=== PATIENT | male | born 1970 | race Hispanic/Latino ===

== ENCOUNTER 2017-01-30 21:12 | Emergency (ER) | payer MEDICAID ==
[~2017-01-30 21:12] MED LIST: ALBU8.5H8 IH; CETI10TA57 PO; CLON1TAB4 PO; CYAN250014 PO; DOCU240C88 PO; ESOM40CA PO; FENO134C PO; FERS325 PO; LEVO75TA10 PO; MONT10TA24 PO; OLAN1CAP17 PO; OXCA600T37 PO; PRED20TA3 PO; PYRI50TA9 PO; QUET400T12 PO; TEMA30CA PO; VIT1TABL75 PO
[2017-01-30 21:43] LABS: APPEARANCE,URINE Clear (CLEAR); BILIRUBIN,URINE Negative (NEGATIVE); COLOR,URINE Yellow (YELLOW); GLUCOSE, URINE (UA) >=1000 mg/dL (NEGATIVE); KETONES,URINE Negative (NEGATIVE); LEUKOCYTE ESTERASE ,URINE Negative (NEGATIVE); NITRATE,URINE Negative (NEGATIVE); OCCULT BLOOD,URINE Negative (NEGATIVE); PROTEIN,URINE Negative (NEGATIVE); UROBILINOGEN,URINE 0.2 mg/dL (0.2-1.0)
[2017-01-30 21:44] LABS: BASOPHILS % (AUTO) 1.1 % (0.0-5.0); EOSINOPHILS % (AUTO) 3.6 % (0.0-8.0); HEMATOCRIT 39.5 % (42-54); LYMPHOCYTES % (AUTO) 31.4 % (21.0-51.0); MEAN CORPUSCULAR HEMOGLOBIN 31.7 pg (27.0-33.0); MEAN CORPUSCULAR HGB CONC 33.7 g/dL (32.0-36.0); MEAN CORPUSCULAR VOLUME 93.9 fL (79-99); NEUTROPHILS % (AUTO) 54.9 % (40.0-77.0); NUCLEATED RED BLOOD CELLS 0.1 % (0.0-0.19); PLATELET COUNT (AUTO) 277 K/uL (130-400); RED CELL DISTRIBUTION WIDTH 15.7 % (11.0-15.5); WHITE BLOOD COUNT (AUTO) 10.2 K/uL (4.8-10.8)
[2017-01-30 21:47] LABS: CREATININE 1.4 mg/dL (0.5-1.5); POTASSIUM 3.4 mmol/L (3.5-5.1)
[2017-01-30 22:00] LABS: ALBUMIN 3.4 g/dL (3.5-5.0); BILIRUBIN,TOTAL 0.2 mg/dL (0.2-1.0); TOTAL PROTEIN, SERUM 7.1 g/dL (6.0-8.3)
[2017-01-30 22:07] LABS: BACTERIA,URINE Rare /HPF (None Seen); RBC,URINE 0-1 /HPF (0-1); WBC,URINE 0-1 /HPF (0-1)
[2017-01-30 22:08] LABS: SQUAMOUS EPITHELIAL CELL,UR Rare /LPF (0-2)
[2017-01-30] MEDS ORDERED: KETOROLAC TROMETHAMINE 30MG/ML ONE (22:23)
[2017-01-30] MEDS ORDERED: ORPHENADRINE CITRATE 30 MG/ML ML ONE (22:23)
[2017-01-30 22:34] LABS: AMPHET/METH SCREEN,URINE NEGATIVE (NEGATIVE); BARBITURATE SCREEN, URINE NEGATIVE (NEGATIVE); BENZODIAZEPINES SCREEN,URINE NEGATIVE (NEGATIVE); CANNABINOID SCREEN,URINE NEGATIVE (NEGATIVE); COCAINE SCREEN,URINE NEGATIVE (NEGATIVE); OPIATE SCREEN,URINE NEGATIVE (NEGATIVE); PHENCYCLIDINE SCREEN,URINE NEGATIVE (NEGATIVE)
[2017-01-30] MEDS ORDERED: HYDROCODONE/ACETAMINOPHEN 7.5/325 MG TAB ONE (23:05)
== END 2017-01-31 00:45 | disposition home or self-care (01) ==
LOC: EDH 21:12
DX: M62.830 Muscle spasm of back (principal); F11.90 Opioid use, unspecified, uncomplicated; R11.0 Nausea; M19.90 Unspecified osteoarthritis, unspecified site; E11.9 Type 2 diabetes mellitus without complications; E78.5 Hyperlipidemia, unspecified; I25.10 Atherosclerotic heart disease of native coronary artery without angina pectoris; I10 Essential (primary) hypertension; E07.9 Disorder of thyroid, unspecified; Z98.890 Other specified postprocedural states
CPT/HCPCS: 36415; 80053; 80305; 81001; 82150; 83690; 85025; 93005; 96360; 96361; 96372 ×2; 99285; J1885; J2360; J7030

== ENCOUNTER 2017-02-25 22:16 | Observation (INO) | payer MEDICAID ==
[~2017-02-25] VITALS: Ht 175.3 cm; Wt 159.7 kg
[2017-02-25] MEDS ORDERED: SODIUM CHLORIDE 0.9% 1000ML 1,000 ML IV ONE (22:53)
[2017-02-25] MEDS ORDERED: KETOROLAC TROMETHAMINE 15MG/ML ONE (22:53)
[2017-02-25] MEDS ORDERED: CYCLOBENZAPRINE HCL 10 MG TABLET ONE (22:54)
[2017-02-25] MEDS ORDERED: MORPHINE SULFATE 4 MG/1ML SYG ONE (22:55)
[2017-02-25 23:43] LABS: BASOPHILS % (AUTO) 1.1 % (0.0-5.0); EOSINOPHILS % (AUTO) 3.4 % (0.0-8.0); HEMATOCRIT 39.3 % (42-54); LYMPHOCYTES % (AUTO) 30.2 % (21.0-51.0); MEAN CORPUSCULAR HEMOGLOBIN 31.8 pg (27.0-33.0); MEAN CORPUSCULAR HGB CONC 34.4 g/dL (32.0-36.0); MEAN CORPUSCULAR VOLUME 92.3 fL (79-99); MONOCYTES % (AUTO) 9.3 % (3.0-13.0); PLATELET COUNT (AUTO) 274 K/uL (130-400); RED BLOOD CELL COUNT(AUTO) 4.25 MIL/uL (4.50-6.20); RED CELL DISTRIBUTION WIDTH 14.7 % (11.0-15.5); WHITE BLOOD COUNT (AUTO) 14.3 K/uL (4.8-10.8)
[2017-02-25 23:44] LABS: APPEARANCE,URINE Clear (CLEAR); BILIRUBIN,URINE Negative (NEGATIVE); COLOR,URINE Yellow (YELLOW); GLUCOSE, URINE (UA) 500 mg/dL (NEGATIVE); KETONES,URINE Negative (NEGATIVE); LEUKOCYTE ESTERASE ,URINE Negative (NEGATIVE); NITRATE,URINE Negative (NEGATIVE); OCCULT BLOOD,URINE Negative (NEGATIVE); PH,URINE 5.5 (5.0-8.0); PROTEIN,URINE Negative (NEGATIVE); UROBILINOGEN,URINE 0.2 mg/dL (0.2-1.0)
[2017-02-25 23:50] LABS: CREATININE 1.5 mg/dL (0.5-1.5); POTASSIUM 3.8 mmol/L (3.5-5.1)
[2017-02-25 23:54] LABS: BACTERIA,URINE None Seen /HPF (None Seen); MUCUS,URINE Rare LPF (None Seen); RBC,URINE 0-1 /HPF (0-1); SQUAMOUS EPITHELIAL CELL,UR None Seen /LPF (0-2); WBC,URINE None Seen /HPF (0-1)
[2017-02-25 23:55] LABS: ALBUMIN 3.4 g/dL (3.5-5.0); BILIRUBIN,DIRECT 0.1 mg/dL (0.0-0.3); BILIRUBIN,TOTAL 0.2 mg/dL (0.2-1.0); TOTAL PROTEIN, SERUM 6.9 g/dL (6.0-8.3)
[2017-02-26] MEDS ORDERED: SODIUM CHLORIDE 0.9% 1000ML 1,000 ML IV ONE (02:29)
[2017-02-26] MEDS ORDERED: ENOXAPARIN SODIUM 30 MG/0.3 ML SQ ONE (02:29)
[2017-02-26] MEDS ORDERED: KETOROLAC TROMETHAMINE 30MG/ML ONE (03:59)
[2017-02-26] MEDS ORDERED: ACETAMINOPHEN 325 MG TAB ONE (10:07)
[2017-02-26] MEDS ORDERED: SODIUM CHLORIDE 0.9% 1000ML 1,000 ML IV SCH (10:15)
[2017-02-26 10:40] LABS: CREATININE 1.4 mg/dL (0.5-1.5); POTASSIUM 3.9 mmol/L (3.5-5.1)
[2017-02-26 10:51] LABS: BASOPHILS % (AUTO) 0.9 % (0.0-5.0); EOSINOPHILS % (AUTO) 4.7 % (0.0-8.0); HEMATOCRIT 39.8 % (42-54); LYMPHOCYTES % (AUTO) 30.7 % (21.0-51.0); MEAN CORPUSCULAR HEMOGLOBIN 31.5 pg (27.0-33.0); MEAN CORPUSCULAR HGB CONC 34.3 g/dL (32.0-36.0); MEAN CORPUSCULAR VOLUME 91.7 fL (79-99); MONOCYTES % (AUTO) 9.3 % (3.0-13.0); NEUTROPHILS % (AUTO) 54.4 % (40.0-77.0); NUCLEATED RED BLOOD CELLS 0.1 % (0.0-0.19); PLATELET COUNT (AUTO) 243 K/uL (130-400); RED BLOOD CELL COUNT(AUTO) 4.34 MIL/uL (4.50-6.20); RED CELL DISTRIBUTION WIDTH 14.1 % (11.0-15.5); WHITE BLOOD COUNT (AUTO) 9.1 K/uL (4.8-10.8)
[2017-02-26] MEDS ORDERED: CLONAZEPAM 0.5 MG TABLET PO PRN (13:45)
[2017-02-26] MEDS ORDERED: TEMAZEPAM 30 MG CAP PO PRN (14:00)
[2017-02-26] MEDS ORDERED: FENOFIBRATE 134 MG PO SCH (21:00)
[2017-02-26] MEDS ORDERED: MONTELUKAST SODIUM 10 MG TAB PO SCH (21:00)
[2017-02-27] MEDS ORDERED: LEVOTHYROXINE 75 MCG TABLET PO SCH (06:30)
[2017-02-27] MEDS ORDERED: PANTOPRAZOLE SODIUM 40 MG TABLET.DR PO SCH (07:30)
[2017-02-27] MEDS ORDERED: PYRIDOXINE HCL 50 MG TABLET PO SCH (09:00)
[2017-02-27] MEDS ORDERED: LISINOPRIL 20 MG TABLET PO SCH (09:00)
[2017-02-27] MEDS ORDERED: HYDROCHLOROTHIAZIDE 25 MG TABLET PO SCH (09:00)
[2017-02-27] MEDS ORDERED: LOSARTAN 100 MG TABLET PO SCH (09:00)
[2017-02-27] MEDS ORDERED: CYANOCOBALAMIN (VITAMIN B-12) 1,000 MCG TABLET PO SCH (09:00)
[2017-02-27] MEDS ORDERED: FERROUS SULFATE 325 MG TABLET.DR PO SCH (09:00)
[2017-02-27] MEDS ORDERED: ENOXAPARIN SODIUM 30 MG/0.3 ML SQ SCH (09:00)
[2017-02-27] MEDS ORDERED: FLUTICASONE PROPIONATE 50MCG/SPRAY 16 GM BOTTLE EN SCH (09:00)
[2017-02-27] MEDS ORDERED: FISH OIL 1000 MG/CAP PO SCH (09:00)
[2017-02-27] MEDS ORDERED: VICTOZA 1.8 MG SQ SCH (09:00)
[2017-02-27] MEDS ORDERED: DOCUSATE CALCIUM 240 MG CAP PO SCH (09:00)
[2017-02-27] MEDS ORDERED: FOLIC ACID/VITAMIN B COMP W-C 1 MG CAPSULE PO SCH (09:00)
[2017-02-27] MEDS ORDERED: CETIRIZINE HCL 5 MG TABLET PO SCH (09:00)
[2017-03-05] MEDS ORDERED: VITAMIN D 1.25 MG PO SCH (09:00)
== END 2017-02-26 13:06 | disposition home or self-care (01) ==
LOC: EDH 22:16 → EDHIP 22:17
PROVIDERS: ADMIT Internal Medicine; ATTEND Internal Medicine
DX: M54.9 Dorsalgia, unspecified (principal); M19.90 Unspecified osteoarthritis, unspecified site; I25.10 Atherosclerotic heart disease of native coronary artery without angina pectoris; E11.9 Type 2 diabetes mellitus without complications; E78.5 Hyperlipidemia, unspecified; I10 Essential (primary) hypertension; E03.9 Hypothyroidism, unspecified; E87.1 Hypo-osmolality and hyponatremia; F31.9 Bipolar disorder, unspecified
CPT/HCPCS: 36415 ×2; 80048 ×2; 80076; 81001; 83690; 85025 ×2; 99285; G0378 ×15; J1650; J1885 ×2; J2270; J7030 ×2

== ENCOUNTER 2017-03-12 09:27 | Inpatient (IN) | payer MEDICAID ==
[~2017-03-12] VITALS: Ht 175.3 cm; Wt 160.1 kg
[2017-03-12 10:33] LABS: BASOPHILS % (AUTO) 0.7 % (0.0-5.0); HEMATOCRIT 38.2 % (42-54); LYMPHOCYTES % (AUTO) 14.9 % (21.0-51.0); MEAN CORPUSCULAR HEMOGLOBIN 32.2 pg (27.0-33.0); MEAN CORPUSCULAR HGB CONC 35.5 g/dL (32.0-36.0); MEAN CORPUSCULAR VOLUME 90.6 fL (79-99); MONOCYTES % (AUTO) 6.5 % (3.0-13.0); NEUTROPHILS % (AUTO) 75.9 % (40.0-77.0); PLATELET COUNT (AUTO) 360 K/uL (130-400); RED BLOOD CELL COUNT(AUTO) 4.22 MIL/uL (4.50-6.20); RED CELL DISTRIBUTION WIDTH 13.9 % (11.0-15.5); WHITE BLOOD COUNT (AUTO) 18.9 K/uL (4.8-10.8)
[2017-03-12 10:47] LABS: APPEARANCE,URINE Clear (CLEAR); BILIRUBIN,URINE Negative (NEGATIVE); COLOR,URINE Yellow (YELLOW); GLUCOSE, URINE (UA) 250 mg/dL (NEGATIVE); KETONES,URINE Negative (NEGATIVE); LEUKOCYTE ESTERASE ,URINE Negative (NEGATIVE); NITRATE,URINE Negative (NEGATIVE); OCCULT BLOOD,URINE Negative (NEGATIVE); PROTEIN,URINE Negative (NEGATIVE); UROBILINOGEN,URINE 0.2 mg/dL (0.2-1.0)
[2017-03-12 10:48] LABS: ALCOHOL, BLOOD < 3 mg/dL (0-10); SALICYLATE 4.1 mg/dL (2.8-20.0)
[2017-03-12 10:49] LABS: ALBUMIN 3.5 g/dL (3.5-5.0); BILIRUBIN,TOTAL 0.3 mg/dL (0.2-1.0); CREATININE 3.2 mg/dL (0.5-1.5); POTASSIUM 3.8 mmol/L (3.5-5.1); TOTAL PROTEIN, SERUM 7.3 g/dL (6.0-8.3)
[2017-03-12 10:50] LABS: ACETAMINOPHEN < 1 mcg/mL (10-29)
[2017-03-12 10:54] LABS: AMPHET/METH SCREEN,URINE NEGATIVE (NEGATIVE); BARBITURATE SCREEN, URINE NEGATIVE (NEGATIVE); BENZODIAZEPINES SCREEN,URINE NEGATIVE (NEGATIVE); CANNABINOID SCREEN,URINE NEGATIVE (NEGATIVE); COCAINE SCREEN,URINE POSITIVE (NEGATIVE); OPIATE SCREEN,URINE POSITIVE (NEGATIVE); PHENCYCLIDINE SCREEN,URINE NEGATIVE (NEGATIVE)
[2017-03-12 11:09] LABS: BACTERIA,URINE Rare /HPF (None Seen); RBC,URINE 0-1 /HPF (0-1); SQUAMOUS EPITHELIAL CELL,UR Rare /LPF (0-2); WBC,URINE 0-1 /HPF (0-1)
[2017-03-12] MEDS ORDERED: ACETAMINOPHEN 325 MG TAB ONE (15:26)
[2017-03-12] MEDS ORDERED: SODIUM CHLORIDE 0.9% 500ML 500 ML IV ONE (15:28)
[2017-03-12 20:00] VITALS: BP 113/56
[2017-03-12] MEDS ORDERED: MAG HYDROX/AL HYDROX/SIMETH ES 30 ML SUSP UDCUP PO PRN (20:00)
[2017-03-12] MEDS ORDERED: DEXTROSE 50%-WATER 50 ML DISP.SYRIN IV PRN (20:00)
[2017-03-12] MEDS ORDERED: DIPHENHYDRAMINE HCL 25 MG CAPSULE PO PRN (20:00)
[2017-03-12] MEDS ORDERED: GUAIFENESIN SUGAR-FREE 100 MG/5 ML UDCUP PO PRN (20:00)
[2017-03-12] MEDS: SODIUM CHLORIDE 0.9% 1000ML 1,000 ML IV SCH (20:00)
[2017-03-12] MEDS ORDERED: DiphenhydrAMINE HCL 50 MG/ML VIAL IVP PRN (20:00)
[2017-03-12] MEDS ORDERED: POTASSIUM CHLORIDE 20MEQ/100ML 100 ML IV PRN (20:00)
[2017-03-12] MEDS ORDERED: POTASSIUM CHLORIDE 10% ELIXIR 20 MEQ/15 ML UDCUP PO PRN (20:00)
[2017-03-12] MEDS ORDERED: FLU VACC QS2017-18 36MOS UP/PF 60 MCG/0.5 ML ML IM ONE (20:00)
[2017-03-12] MEDS ORDERED: ONDANSETRON HCL 4 MG/2 ML VIAL IVP PRN (20:00)
[2017-03-12] MEDS ORDERED: POTASSIUM CHLORIDE 20 MEQ ERTAB PO PRN (20:00)
[2017-03-12] MEDS ORDERED: GUAIFENESIN-DM 200/20 MG 10 ML PO PRN (20:00)
[2017-03-12] MEDS ORDERED: ACETAMINOPHEN 325 MG TAB PO PRN ×2 (20:00)
[2017-03-12] MEDS ORDERED: LACTULOSE 20 GM/30 ML UDCUP PO PRN (20:00)
[2017-03-12] MEDS ORDERED: CLONIDINE HCL 0.1 MG TABLET PO PRN (20:00)
[2017-03-12] MEDS ORDERED: NITROGLYCERIN 0.4 MG SL TAB SL PRN (20:00)
[2017-03-12] MEDS ORDERED: LIDOCAINE HCL-MPF 1% 2ML VIAL IJ PRN (20:00)
[2017-03-12] MEDS ORDERED: GLUCAGON 1MG KIT 1 MG ML IM PRN (20:00)
[2017-03-12] MEDS: INSULIN R PO SSI SQ SCH (20:46)
[2017-03-12] MEDS: ZOLPIDEM TARTRATE 5 MG TAB PO PRN (20:47)
[2017-03-13] VITALS (7 sets, daily range): BP systolic 100–128; BP diastolic 58–79
[2017-03-13] MEDS ORDERED: CIPR-278 PO (02:54)
[2017-03-13] MEDS ORDERED: ONDA4TAB9 PO (02:54)
[2017-03-13] MEDS ORDERED: LISI-613 PO (02:54)
[2017-03-13] MEDS ORDERED: ICOS1CAP PO (02:54)
[2017-03-13] MEDS ORDERED: LOSA100T29 PO (02:54)
[2017-03-13] MEDS ORDERED: METR500T4 PO (03:17)
[2017-03-13] MEDS ORDERED: CHLO25TA3 PO (03:17)
[2017-03-13] MEDS: SODIUM CHLORIDE 0.9% 1000ML 1,000 ML IV SCH ×3 (03:21→21:44)
[2017-03-13 05:42] LABS: HEMATOCRIT 41.4 % (42-54); MEAN CORPUSCULAR HEMOGLOBIN 31.9 pg (27.0-33.0); MEAN CORPUSCULAR HGB CONC 35.1 g/dL (32.0-36.0); MEAN CORPUSCULAR VOLUME 90.9 fL (79-99); PLATELET COUNT (AUTO) 437 K/uL (130-400); RED BLOOD CELL COUNT(AUTO) 4.56 MIL/uL (4.50-6.20); WHITE BLOOD COUNT (AUTO) 16.8 K/uL (4.8-10.8)
[2017-03-13 06:16] LABS: CREATININE 2.3 mg/dL (0.5-1.5); POTASSIUM 4.4 mmol/L (3.5-5.1)
[2017-03-13] MEDS: INSULIN R PO SSI SQ SCH ×4 (06:48→21:47)
[2017-03-13] MEDS ORDERED: ALBUTEROL SULFATE 0.083% 2.5 MG/3 ML INH IH PRN (08:45)
[2017-03-13] MEDS ORDERED: ONDANSETRON 4 MG TABLET PO PRN (08:45)
[2017-03-13] MEDS ORDERED: CLONAZEPAM 0.5 MG TABLET PO PRN (08:45)
[2017-03-13] MEDS ORDERED: IBUPROFEN 800 MG TAB PO PRN (09:00)
[2017-03-13] MEDS: CIPROFLOXACIN HCL 500 MG TABLET PO SCH ×2 (09:00→21:00)
[2017-03-13] MEDS ORDERED: MORPHINE SULFATE 4 MG/1ML SYG IV PRN (09:00)
[2017-03-13] MEDS: LISINOPRIL 20 MG TABLET PO SCH ×2 (10:42→21:44)
[2017-03-13] MEDS: MONTELUKAST SODIUM 10 MG TAB PO SCH (10:42)
[2017-03-13] MEDS: DOCUSATE CALCIUM 240 MG CAP PO SCH (10:42)
[2017-03-13] MEDS: PYRIDOXINE HCL 50 MG TABLET PO SCH (10:42)
[2017-03-13] MEDS: LOSARTAN 100 MG TABLET PO SCH (10:42)
[2017-03-13] MEDS: LORAZEPAM 2 MG/ML 1 ML VIAL IVP PRN (10:43)
[2017-03-13] MEDS: HYDROCHLOROTHIAZIDE 25 MG TABLET PO SCH (12:29)
[2017-03-13] MEDS: CETIRIZINE HCL 5 MG TABLET PO SCH (12:29)
[2017-03-13] MEDS: OXCARBAZEPINE 300 MG TAB PO SCH ×2 (12:29→18:25)
[2017-03-13] MEDS: FISH OIL 1000 MG/CAP PO SCH ×2 (12:29→17:50)
[2017-03-13] MEDS: CEFTRIAXONE SODIUM 1 GM IV SCH (12:54)
[2017-03-13] MEDS: METRONIDAZOLE 500 MG TABLET PO SCH ×2 (14:00→21:43)
[2017-03-13] MEDS ORDERED: MORPHINE SULFATE 2 MG/ML 1ML SYG ONE (14:59)
[2017-03-13] MEDS: MORPHINE SULFATE 2 MG/ML 1ML SYG IV PRN ×3 (15:04→23:03)
[2017-03-13] MEDS: OXCARBAZEPINE 600 MG PO SCH (21:00)
[2017-03-13] MEDS: FLUOXETINE HCL PO SCH (21:00)
[2017-03-13] MEDS: OLANZAPINE PO SCH (21:00)
[2017-03-13] MEDS: ZOLPIDEM TARTRATE 5 MG TAB PO PRN (21:44)
[2017-03-14] MEDS: MORPHINE SULFATE 2 MG/ML 1ML SYG IV PRN ×5 (03:12→19:59)
[2017-03-14] MEDS ORDERED: FLU VACC QS2017-18 36MOS UP/PF 60 MCG/0.5 ML ML IM ONE (03:19)
[2017-03-14 04:00] VITALS: BP 93/58
[2017-03-14 04:14] LABS: HEMATOCRIT 35.7 % (42-54); MEAN CORPUSCULAR HEMOGLOBIN 32.5 pg (27.0-33.0); MEAN CORPUSCULAR HGB CONC 35.5 g/dL (32.0-36.0); MEAN CORPUSCULAR VOLUME 91.5 fL (79-99); PLATELET COUNT (AUTO) 352 K/uL (130-400); WHITE BLOOD COUNT (AUTO) 13.4 K/uL (4.8-10.8)
[2017-03-14 04:33] LABS: CREATININE 2.1 mg/dL (0.5-1.5); POTASSIUM 3.9 mmol/L (3.5-5.1)
[2017-03-14 05:27] LABS: BAND NEUTROPHILS % (MANUAL) 4 % (0-2); BASOPHILS % (MANUAL) 1 % (0-2); LYMPHOCYTES % (MANUAL) 24 % (22-44); MAN.DIFF COMMENT-IMPRESSION MANUAL DIFFERENTIAL; MONOCYTES % (MANUAL) 5 % (2-9); PLATELET MORPHOLOGY COMMENT ADEQUATE; SEGMENTED NEUTROPHILS % 66 % (40-70)
[2017-03-14] MEDS: SODIUM CHLORIDE 0.9% 1000ML 1,000 ML IV SCH ×3 (06:07→21:22)
[2017-03-14] MEDS: INSULIN R PO SSI SQ SCH ×4 (06:08→21:00)
[2017-03-14 08:00] VITALS: BP 130/55
[2017-03-14] MEDS: FISH OIL 1000 MG/CAP PO SCH ×2 (08:00→17:00)
[2017-03-14] MEDS: CIPROFLOXACIN HCL 500 MG TABLET PO SCH (09:00)
[2017-03-14] MEDS ORDERED: OXCARBAZEPINE 300 MG TAB PO ONE (09:43)
[2017-03-14] MEDS ORDERED: LOSARTAN 100 MG TABLET PO ONE (09:44)
[2017-03-14] MEDS ORDERED: FERROUS SULFATE 325 MG TABLET.DR PO ONE (09:44)
[2017-03-14] MEDS ORDERED: CEFTRIAXONE SODIUM 1 GM IVP ONE (09:45)
[2017-03-14] MEDS: CEFTRIAXONE SODIUM 1 GM IV SCH (09:51)
[2017-03-14] MEDS: CETIRIZINE HCL 5 MG TABLET PO SCH (09:51)
[2017-03-14] MEDS: OXCARBAZEPINE 300 MG TAB PO SCH ×2 (09:51→19:58)
[2017-03-14] MEDS: PYRIDOXINE HCL 50 MG TABLET PO SCH (09:51)
[2017-03-14] MEDS: HYDROCHLOROTHIAZIDE 25 MG TABLET PO SCH (09:51)
[2017-03-14] MEDS: LISINOPRIL 20 MG TABLET PO SCH ×2 (09:52→21:00)
[2017-03-14] MEDS: SODIUM CHLORIDE 1,000 MG TAB PO SCH (09:52)
[2017-03-14] MEDS: LOSARTAN 100 MG TABLET PO SCH (09:52)
[2017-03-14] MEDS: DOCUSATE CALCIUM 240 MG CAP PO SCH (09:52)
[2017-03-14] MEDS: FERROUS SULFATE 325 MG TABLET.DR PO SCH (09:52)
[2017-03-14] MEDS: METRONIDAZOLE 500 MG TABLET PO SCH ×3 (09:52→21:20)
[2017-03-14] MEDS: MONTELUKAST SODIUM 10 MG TAB PO SCH (09:52)
[2017-03-14 11:55] VITALS: BP 138/74
[2017-03-14] MEDS: LORAZEPAM 2 MG/ML 1 ML VIAL IVP PRN (13:46)
[2017-03-14 16:00] VITALS: BP 105/49
[2017-03-14 20:00] VITALS: BP 117/74
[2017-03-14] MEDS ORDERED: A PO SCH (21:00)
[2017-03-14] MEDS: OXCARBAZEPINE 600 MG PO SCH (21:00)
[2017-03-14] MEDS: FLUOXETINE HCL PO SCH (21:00)
[2017-03-14] MEDS: OLANZAPINE PO SCH (21:00)
[2017-03-14 23:54] VITALS: BP 86/46
[2017-03-15 00:10] VITALS: BP 106/60
[2017-03-15] MEDS: MORPHINE SULFATE 2 MG/ML 1ML SYG IV PRN ×3 (00:12→09:00)
[2017-03-15] MEDS: CEFTRIAXONE SODIUM 1 GM IV SCH ×2 (00:13→09:01)
[2017-03-15 04:00] VITALS: BP 116/70
[2017-03-15 04:13] LABS: MEAN CORPUSCULAR HEMOGLOBIN 31.9 pg (27.0-33.0); MEAN CORPUSCULAR HGB CONC 34.9 g/dL (32.0-36.0); MEAN CORPUSCULAR VOLUME 91.6 fL (79-99); PLATELET COUNT (AUTO) 400 K/uL (130-400); RED BLOOD CELL COUNT(AUTO) 4.15 MIL/uL (4.50-6.20); RED CELL DISTRIBUTION WIDTH 13.7 % (11.0-15.5); WHITE BLOOD COUNT (AUTO) 14.3 K/uL (4.8-10.8)
[2017-03-15 04:23] LABS: CREATININE 1.9 mg/dL (0.5-1.5); POTASSIUM 3.9 mmol/L (3.5-5.1)
[2017-03-15] MEDS: INSULIN R PO SSI SQ SCH (07:30)
[2017-03-15 08:27] VITALS: BP 120/66
[2017-03-15] MEDS ORDERED: LOSARTAN 100 MG TABLET PO ONE (08:48)
[2017-03-15] MEDS ORDERED: FERROUS SULFATE 325 MG TABLET.DR PO ONE (08:48)
[2017-03-15] MEDS: SODIUM CHLORIDE 1,000 MG TAB PO SCH (09:00)
[2017-03-15] MEDS: HYDROCHLOROTHIAZIDE 25 MG TABLET PO SCH (09:00)
[2017-03-15] MEDS: LISINOPRIL 20 MG TABLET PO SCH (09:00)
[2017-03-15] MEDS: CETIRIZINE HCL 5 MG TABLET PO SCH (09:00)
[2017-03-15] MEDS: PYRIDOXINE HCL 50 MG TABLET PO SCH (09:01)
[2017-03-15] MEDS: OXCARBAZEPINE 300 MG TAB PO SCH (09:01)
[2017-03-15] MEDS: FERROUS SULFATE 325 MG TABLET.DR PO SCH (09:01)
[2017-03-15] MEDS: DOCUSATE CALCIUM 240 MG CAP PO SCH (09:01)
[2017-03-15] MEDS: FISH OIL 1000 MG/CAP PO SCH (09:01)
[2017-03-15] MEDS: MONTELUKAST SODIUM 10 MG TAB PO SCH (09:01)
[2017-03-15] MEDS: LOSARTAN 100 MG TABLET PO SCH (09:02)
[2017-03-15] MEDS: METRONIDAZOLE 500 MG TABLET PO SCH (09:02)
[2017-03-15] MEDS ORDERED: LEVO500S PO (09:13)
== END 2017-03-15 09:40 | disposition home or self-care (01) | DRG 469 ==
LOC: EDH 09:27 → EDHIP 09:28 → 3AH 18:11
PROVIDERS: ADMIT Family Medicine; ATTEND Family Medicine
PROC: 3E0234Z Introduction of Serum, Toxoid and Vaccine into Muscle, Percutaneous Approach (ICD-10-PCS; principal; 2017-03-13)
DX: N17.9 Acute kidney failure, unspecified (principal); E11.22 Type 2 diabetes mellitus with diabetic chronic kidney disease; I12.9 Hypertensive chronic kidney disease with stage 1 through stage 4 chronic kidney disease, or unspecified chronic kidney disease; E86.0 Dehydration; E87.1 Hypo-osmolality and hyponatremia; Z68.43 Body mass index [BMI] 50.0-59.9, adult; D72.829 Elevated white blood cell count, unspecified; E03.9 Hypothyroidism, unspecified; I25.10 Atherosclerotic heart disease of native coronary artery without angina pectoris; G89.29 Other chronic pain; E66.9 Obesity, unspecified; F31.9 Bipolar disorder, unspecified; N18.9 Chronic kidney disease, unspecified; F19.10 Other psychoactive substance abuse, uncomplicated; Z23 Encounter for immunization
CPT/HCPCS: 36415; 71045; 80048; 80053; 80305; 81001; 82948; 84484; 85025; 85027; 87804; 93005; 94640; 94664; A4218; G0008; G0480; G0481; J0696; J1815; J2060; J7030; J7040; Q2038

== ENCOUNTER 2017-03-24 22:36 | Inpatient (IN) | payer MEDICAID ==
[~2017-03-24] VITALS: Ht 175.3 cm; Wt 158.8 kg
[~2017-03-24 22:36] MED LIST changes: +CHLO25TA3 PO; +CIPR-278 PO; +ICOS1CAP PO; +LEVO500S PO; +LISI-613 PO; +LOSA100T29 PO; +METR500T4 PO; +ONDA4TAB9 PO
[2017-03-24] MEDS ORDERED: SODIUM CHLORIDE 0.9% 1000ML 1,000 ML IV ONE (22:47)
[2017-03-24] MEDS ORDERED: SODIUM CHLORIDE 0.9% 500ML 500 ML IV ONE (22:49)
[2017-03-24 23:27] LABS: BASOPHILS % (AUTO) 0.7 % (0.0-5.0); HEMATOCRIT 31.1 % (42-54); LYMPHOCYTES % (AUTO) 25.4 % (21.0-51.0); MEAN CORPUSCULAR HEMOGLOBIN 32.4 pg (27.0-33.0); MEAN CORPUSCULAR HGB CONC 36.1 g/dL (32.0-36.0); MEAN CORPUSCULAR VOLUME 89.8 fL (79-99); MONOCYTES % (AUTO) 7.8 % (3.0-13.0); NEUTROPHILS % (AUTO) 64.1 % (40.0-77.0); PLATELET COUNT (AUTO) 309 K/uL (130-400); RED BLOOD CELL COUNT(AUTO) 3.46 MIL/uL (4.50-6.20); RED CELL DISTRIBUTION WIDTH 13.7 % (11.0-15.5); WHITE BLOOD COUNT (AUTO) 15.5 K/uL (4.8-10.8)
[2017-03-25 00:10] LABS: ALBUMIN 3.1 g/dL (3.5-5.0); BILIRUBIN,TOTAL 0.3 mg/dL (0.2-1.0); CREATINE KINASE MB 11.1 ng/mL (0.5-3.6); CREATININE 2.1 mg/dL (0.5-1.5)
[2017-03-25] MEDS ORDERED: POTASSIUM BICARB/CIT AC 25 MEQ TABLET.EFF ONE (01:17)
[2017-03-25] MEDS ORDERED: SODIUM CHLORIDE 0.9% 1000ML 1,000 ML IV ONE (01:20)
[2017-03-25 01:45] LABS: AMPHET/METH SCREEN,URINE NEGATIVE (NEGATIVE); BARBITURATE SCREEN, URINE NEGATIVE (NEGATIVE); BENZODIAZEPINES SCREEN,URINE NEGATIVE (NEGATIVE); CANNABINOID SCREEN,URINE NEGATIVE (NEGATIVE); COCAINE SCREEN,URINE POSITIVE (NEGATIVE); OPIATE SCREEN,URINE NEGATIVE (NEGATIVE); PHENCYCLIDINE SCREEN,URINE NEGATIVE (NEGATIVE)
[2017-03-25] MEDS ORDERED: AZITHROMYCIN 250 MG TABLET PO ONE (05:16)
[2017-03-25] MEDS ORDERED: CEFTRIAXONE SODIUM 1 GM ONE (05:16)
[2017-03-25 07:52] LABS: BASOPHILS % (AUTO) 0.7 % (0.0-5.0); EOSINOPHILS % (AUTO) 3.1 % (0.0-8.0); MEAN CORPUSCULAR HEMOGLOBIN 31.9 pg (27.0-33.0); MEAN CORPUSCULAR HGB CONC 35.3 g/dL (32.0-36.0); MEAN CORPUSCULAR VOLUME 90.3 fL (79-99); MONOCYTES % (AUTO) 7.6 % (3.0-13.0); NEUTROPHILS % (AUTO) 61.6 % (40.0-77.0); PLATELET COUNT (AUTO) 289 K/uL (130-400); RED CELL DISTRIBUTION WIDTH 13.6 % (11.0-15.5); WHITE BLOOD COUNT (AUTO) 10.7 K/uL (4.8-10.8)
[2017-03-25 08:28] LABS: CREATININE 1.7 mg/dL (0.5-1.5); POTASSIUM 3.5 mmol/L (3.5-5.1)
[2017-03-25 08:35] LABS: ALBUMIN 3.2 g/dL (3.5-5.0); BILIRUBIN,TOTAL 0.2 mg/dL (0.2-1.0); TOTAL PROTEIN, SERUM 6.5 g/dL (6.0-8.3)
[2017-03-25 11:14] VITALS: BP 125/53
[2017-03-25] MEDS ORDERED: HYDR-4381 PO (14:11)
[2017-03-25] MEDS ORDERED: GLUCAGON 1MG KIT 1 MG ML IM PRN (14:15)
[2017-03-25] MEDS ORDERED: DEXTROSE 50%-WATER 50 ML DISP.SYRIN IV PRN (14:15)
[2017-03-25] MEDS: HYDROCODONE/ACETAMINOPHEN 10/325 MG TAB PO PRN (14:28)
[2017-03-25] MEDS: SODIUM CHLORIDE 0.9% 1000ML 1,000 ML IV SCH ×2 (14:28→20:05)
[2017-03-25 16:00] VITALS: BP 107/57
[2017-03-25] MEDS ORDERED: TEMAZEPAM 30 MG CAP PO PRN (16:00)
[2017-03-25] MEDS ORDERED: AMLO10TA2 PO (16:08)
[2017-03-25] MEDS: INSULIN HUMULIN R 100 UNIT/ML 3ML SQ SCH ×2 (16:26→20:29)
[2017-03-25] MEDS ORDERED: CLONAZEPAM 0.5 MG TABLET PO PRN (16:45)
[2017-03-25] MEDS: Icosapent Ethyl (Vascepa) 2 GM PO SCH (17:00)
[2017-03-25] MEDS ORDERED: LIRA0.6P SQ (18:04)
[2017-03-25] MEDS: LISINOPRIL 20 MG TABLET PO SCH (19:58)
[2017-03-25] MEDS: OLANZAPINE PO SCH (20:03)
[2017-03-25] MEDS: QUETIAPINE FUMARATE 800 MG PO SCH (20:03)
[2017-03-25] MEDS: FLUOXETINE PO SCH (20:03)
[2017-03-25 20:11] VITALS: BP 116/68
[2017-03-25 22:20] VITALS: BP 126/75
[2017-03-26] VITALS (8 sets, daily range): BP systolic 114–138; BP diastolic 59–72
[2017-03-26] MEDS: HYDROCODONE/ACETAMINOPHEN 10/325 MG TAB PO PRN ×5 (00:49→21:39)
[2017-03-26 05:48] LABS: CREATININE 1.5 mg/dL (0.5-1.5); POTASSIUM 4.1 mmol/L (3.5-5.1)
[2017-03-26] MEDS: INSULIN HUMULIN R 100 UNIT/ML 3ML SQ SCH ×4 (06:25→21:00)
[2017-03-26] MEDS: SODIUM CHLORIDE 0.9% 1000ML 1,000 ML IV SCH ×3 (06:32→18:36)
[2017-03-26] MEDS: LEVOTHYROXINE 75 MCG TABLET PO SCH (06:32)
[2017-03-26] MEDS: Icosapent Ethyl (Vascepa) 2 GM PO SCH ×2 (08:00→17:00)
[2017-03-26] MEDS: PYRIDOXINE HCL 50 MG TABLET PO SCH (08:48)
[2017-03-26] MEDS: LISINOPRIL 20 MG TABLET PO SCH ×2 (08:48→19:43)
[2017-03-26] MEDS: CETIRIZINE HCL 5 MG TABLET PO SCH (08:48)
[2017-03-26] MEDS: MULTIVITAMIN TABLET PO SCH (08:48)
[2017-03-26] MEDS: AZITHROMYCIN 250 MG TABLET PO SCH (08:49)
[2017-03-26] MEDS: AMLODIPINE BESYLATE 5 MG TAB PO SCH (08:49)
[2017-03-26] MEDS: DOCUSATE CALCIUM 240 MG CAP PO SCH (08:49)
[2017-03-26] MEDS: PANTOPRAZOLE SODIUM 40 MG TABLET.DR PO SCH (08:49)
[2017-03-26] MEDS: LOSARTAN 100 MG TABLET PO SCH (08:49)
[2017-03-26] MEDS: MONTELUKAST SODIUM 10 MG TAB PO SCH (08:49)
[2017-03-26] MEDS: FERROUS SULFATE 325 MG TABLET.DR PO SCH (08:49)
[2017-03-26] MEDS: CYANOCOBALAMIN (VITAMIN B-12) 1,000 MCG TABLET PO SCH (08:49)
[2017-03-26] MEDS: Chlorthalidone 25 MG PO SCH (08:51)
[2017-03-26] MEDS: LIRAGLUTIDE SQ SCH (08:52)
[2017-03-26] MEDS: CEFTRIAXONE SODIUM 1 GM IVP SCH (08:55)
[2017-03-26] MEDS: OLANZAPINE PO SCH (21:00)
[2017-03-26] MEDS: FLUOXETINE PO SCH (21:00)
[2017-03-26] MEDS: QUETIAPINE FUMARATE 800 MG PO SCH (21:00)
[2017-03-27] MEDS: SODIUM CHLORIDE 0.9% 1000ML 1,000 ML IV SCH ×2 (01:31→09:05)
[2017-03-27] MEDS: HYDROCODONE/ACETAMINOPHEN 10/325 MG TAB PO PRN ×2 (03:19→09:07)
[2017-03-27 04:00] VITALS: BP 127/79
[2017-03-27] MEDS: INSULIN HUMULIN R 100 UNIT/ML 3ML SQ SCH (05:30)
[2017-03-27 06:05] LABS: CREATININE 1.5 mg/dL (0.5-1.5); POTASSIUM 3.8 mmol/L (3.5-5.1); THYROID STIMULATING HORMONE 4.29 uIU/mL (0.36-3.74)
[2017-03-27 07:44] VITALS: BP 134/79
[2017-03-27] MEDS: Icosapent Ethyl (Vascepa) 2 GM PO SCH (08:00)
[2017-03-27] MEDS: Chlorthalidone 25 MG PO SCH (09:00)
[2017-03-27] MEDS: LIRAGLUTIDE SQ SCH (09:00)
[2017-03-27] MEDS: LEVOTHYROXINE 75 MCG TABLET PO SCH (09:05)
[2017-03-27] MEDS: FERROUS SULFATE 325 MG TABLET.DR PO SCH (09:06)
[2017-03-27] MEDS: PANTOPRAZOLE SODIUM 40 MG TABLET.DR PO SCH (09:06)
[2017-03-27] MEDS: CYANOCOBALAMIN (VITAMIN B-12) 1,000 MCG TABLET PO SCH (09:06)
[2017-03-27] MEDS: LISINOPRIL 20 MG TABLET PO SCH (09:06)
[2017-03-27] MEDS: DOCUSATE CALCIUM 240 MG CAP PO SCH (09:06)
[2017-03-27] MEDS: MULTIVITAMIN TABLET PO SCH (09:06)
[2017-03-27] MEDS: CETIRIZINE HCL 5 MG TABLET PO SCH (09:06)
[2017-03-27] MEDS: MONTELUKAST SODIUM 10 MG TAB PO SCH (09:06)
[2017-03-27] MEDS: AZITHROMYCIN 250 MG TABLET PO SCH (09:06)
[2017-03-27] MEDS: AMLODIPINE BESYLATE 5 MG TAB PO SCH (09:06)
[2017-03-27] MEDS: PYRIDOXINE HCL 50 MG TABLET PO SCH (09:07)
[2017-03-27] MEDS: CEFTRIAXONE SODIUM 1 GM IVP SCH (09:07)
[2017-03-27] MEDS: LOSARTAN 100 MG TABLET PO SCH (09:07)
[2017-03-27 11:29] VITALS: BP 147/86
[2017-03-27] MEDS ORDERED: LEVO100T12 PO (12:20)
== END 2017-03-27 14:15 | disposition home or self-care (01) | DRG 469 ==
LOC: EDH 22:36 → EDHIP 22:37 → OBSVTOIN 22:37 → 4BH 03-25 10:39
PROVIDERS: ADMIT Internal Medicine Critical Care Medicine; ATTEND Internal Medicine Critical Care Medicine
DX: N17.9 Acute kidney failure, unspecified (principal); M62.82 Rhabdomyolysis; E11.22 Type 2 diabetes mellitus with diabetic chronic kidney disease; E66.01 Morbid (severe) obesity due to excess calories; E87.1 Hypo-osmolality and hyponatremia; F14.129 Cocaine abuse with intoxication, unspecified; D72.829 Elevated white blood cell count, unspecified; E03.9 Hypothyroidism, unspecified; E86.0 Dehydration; F31.9 Bipolar disorder, unspecified; I12.9 Hypertensive chronic kidney disease with stage 1 through stage 4 chronic kidney disease, or unspecified chronic kidney disease; I25.10 Atherosclerotic heart disease of native coronary artery without angina pectoris; N18.9 Chronic kidney disease, unspecified; F19.10 Other psychoactive substance abuse, uncomplicated; G47.33 Obstructive sleep apnea (adult) (pediatric); Z68.43 Body mass index [BMI] 50.0-59.9, adult; Z91.19 Patient's noncompliance with other medical treatment and regimen
CPT/HCPCS: 36415; 71045; 80048; 80053; 80305; 82550; 82553; 82948; 83874; 83930; 83935; 84443; 84484; 85025; 93005; 99291; A4218; J0696; J7030; J7040

== ENCOUNTER 2017-04-11 17:25 | Emergency (ER) | payer MEDICAID ==
[~2017-04-11 17:25] MED LIST changes: -ALBU8.5H8 IH; +AMLO10TA2 PO; -CHLO25TA3 PO; -CIPR-278 PO; -CLON1TAB4 PO; -FENO134C PO; +LEVO100T12 PO; -LEVO500S PO; -LEVO75TA10 PO; +LIRA0.6P SQ; -METR500T4 PO; -ONDA4TAB9 PO; -PRED20TA3 PO
[2017-04-11 18:13] LABS: BASOPHILS % (AUTO) 0.9 % (0.0-5.0); EOSINOPHILS % (AUTO) 2.3 % (0.0-8.0); HEMATOCRIT 40.3 % (42-54); LYMPHOCYTES % (AUTO) 20.7 % (21.0-51.0); MEAN CORPUSCULAR HEMOGLOBIN 31.5 pg (27.0-33.0); MEAN CORPUSCULAR HGB CONC 34.6 g/dL (32.0-36.0); MONOCYTES % (AUTO) 6.1 % (3.0-13.0); PLATELET COUNT (AUTO) 351 K/uL (130-400); RED BLOOD CELL COUNT(AUTO) 4.43 MIL/uL (4.50-6.20); RED CELL DISTRIBUTION WIDTH 13.8 % (11.0-15.5); WHITE BLOOD COUNT (AUTO) 17.2 K/uL (4.8-10.8)
[2017-04-11] MEDS ORDERED: SODIUM CHLORIDE 0.9% 1000ML 1,000 ML IV ONE (18:14)
[2017-04-11] MEDS ORDERED: ACETAMINOPHEN 325 MG TAB ONE (18:15)
[2017-04-11] MEDS ORDERED: DIPHENHYDRAMINE HCL 25 MG CAPSULE ONE (18:15)
[2017-04-11 18:20] LABS: AMPHET/METH SCREEN,URINE NEGATIVE (NEGATIVE); BARBITURATE SCREEN, URINE NEGATIVE (NEGATIVE); BENZODIAZEPINES SCREEN,URINE NEGATIVE (NEGATIVE); CANNABINOID SCREEN,URINE NEGATIVE (NEGATIVE); COCAINE SCREEN,URINE NEGATIVE (NEGATIVE); OPIATE SCREEN,URINE NEGATIVE (NEGATIVE); PHENCYCLIDINE SCREEN,URINE NEGATIVE (NEGATIVE)
[2017-04-11 18:22] LABS: CREATININE 1.4 mg/dL (0.5-1.5); POTASSIUM 3.8 mmol/L (3.5-5.1)
[2017-04-11] MEDS ORDERED: KETOROLAC TROMETHAMINE 15MG/ML ONE (18:29)
[2017-04-11] MEDS ORDERED: IPRATROPIUM/ALBUTEROL SULFATE 3 ML SOLUTION IH ONE (18:51)
[2017-04-11 20:42] LABS: APPEARANCE,URINE Clear (CLEAR); BILIRUBIN,URINE Negative (NEGATIVE); COLOR,URINE Yellow (YELLOW); GLUCOSE, URINE (UA) 500 mg/dL (NEGATIVE); KETONES,URINE Negative (NEGATIVE); LEUKOCYTE ESTERASE ,URINE Negative (NEGATIVE); NITRATE,URINE Negative (NEGATIVE); OCCULT BLOOD,URINE Negative (NEGATIVE); PH,URINE 5.5 (5.0-8.0); PROTEIN,URINE Negative (NEGATIVE); UROBILINOGEN,URINE 0.2 mg/dL (0.2-1.0)
[2017-04-11 20:51] LABS: BACTERIA,URINE None Seen /HPF (None Seen); RBC,URINE None Seen /HPF (0-1); SQUAMOUS EPITHELIAL CELL,UR 0-2 /LPF (0-2); WBC,URINE None Seen /HPF (0-1)
== END 2017-04-11 21:31 | disposition home or self-care (01) ==
LOC: EDH 17:25
DX: E87.1 Hypo-osmolality and hyponatremia (principal); E86.0 Dehydration; R53.1 Weakness
CPT/HCPCS: 36415; 70450; 80048; 80305; 81001; 81003; 82550; 85025; 93005; 94640; 96361; 96374; 99285; J1885; J7030; Q0163

== ENCOUNTER 2017-05-18 18:48 | Emergency (ER) | payer MEDICAID ==
[2017-05-18] MEDS ORDERED: SODIUM CHLORIDE 0.9% 1000ML 1,000 ML IV ONE (19:25)
[2017-05-18 19:54] LABS: BASOPHILS % (AUTO) 1.4 % (0.0-5.0); EOSINOPHILS % (AUTO) 2.8 % (0.0-8.0); MEAN CORPUSCULAR HEMOGLOBIN 32.5 pg (27.0-33.0); MEAN CORPUSCULAR HGB CONC 36.1 g/dL (32.0-36.0); MEAN CORPUSCULAR VOLUME 90.1 fL (79-99); MONOCYTES % (AUTO) 8.4 % (3.0-13.0); NEUTROPHILS % (AUTO) 55.4 % (40.0-77.0); PLATELET COUNT (AUTO) 264 K/uL (130-400); RED BLOOD CELL COUNT(AUTO) 3.99 MIL/uL (4.50-6.20); WHITE BLOOD COUNT (AUTO) 15.1 K/uL (4.8-10.8)
[2017-05-18 20:20] LABS: ALANINE AMINOTRANSFERASE 61 U/L (12-78); ALCOHOL, BLOOD 67 mg/dL (0-10); ASPARTATE AMINOTRANSFERASE 42 U/L (10-37); BILIRUBIN,TOTAL 0.3 mg/dL (0.2-1.0); CARBON DIOXIDE 27 mmol/L (21-32); CHLORIDE 97 mmol/L (101-111); CREATININE 1.5 mg/dL (0.5-1.5); GLOMERULAR FILTR. RATE CALC 54 mL/min (>60); GLUCOSE,RANDOM 103 mg/dL (70-105); SALICYLATE 4.3 mg/dL (2.8-20.0); SODIUM SERUM 134 mmol/L (136-145); TOTAL PROTEIN, SERUM 6.6 g/dL (6.0-8.3); UREA NITROGEN, BLOOD 9 mg/dL (7-18)
[2017-05-18 20:20] LABS: APPEARANCE,URINE Clear (CLEAR); BILIRUBIN,URINE Negative (NEGATIVE); COLOR,URINE Yellow (YELLOW); GLUCOSE, URINE (UA) Negative (NEGATIVE); KETONES,URINE Negative (NEGATIVE); LEUKOCYTE ESTERASE ,URINE Negative (NEGATIVE); NITRATE,URINE Negative (NEGATIVE); OCCULT BLOOD,URINE Negative (NEGATIVE); PH,URINE 6.5 (5.0-8.0); PROTEIN,URINE Negative (NEGATIVE); UROBILINOGEN,URINE 0.2 mg/dL (0.2-1.0)
[2017-05-18 20:23] LABS: POTASSIUM 2.8 mmol/L (3.5-5.1)
[2017-05-18 20:24] LABS: ACETAMINOPHEN < 1 mcg/mL (10-29)
[2017-05-18 20:27] LABS: AMPHET/METH SCREEN,URINE NEGATIVE (NEGATIVE); BARBITURATE SCREEN, URINE NEGATIVE (NEGATIVE); BENZODIAZEPINES SCREEN,URINE NEGATIVE (NEGATIVE); CANNABINOID SCREEN,URINE NEGATIVE (NEGATIVE); COCAINE SCREEN,URINE POSITIVE (NEGATIVE); OPIATE SCREEN,URINE NEGATIVE (NEGATIVE); PHENCYCLIDINE SCREEN,URINE NEGATIVE (NEGATIVE)
[2017-05-18] MEDS ORDERED: ONDANSETRON HCL MDV 20ML 2 MG/ML VIAL ONE (20:54)
[2017-05-18] MEDS ORDERED: POTASSIUM CHLORIDE 20 MEQ ERTAB PO ONE (20:54)
== END 2017-05-19 01:59 | disposition home or self-care (01) ==
LOC: EDH 18:48
DX: F14.10 Cocaine abuse, uncomplicated (principal); F10.10 Alcohol abuse, uncomplicated; F31.9 Bipolar disorder, unspecified; R45.851 Suicidal ideations; E11.9 Type 2 diabetes mellitus without complications; G89.29 Other chronic pain; M54.9 Dorsalgia, unspecified; Z79.4 Long term (current) use of insulin; Z72.0 Tobacco use
CPT/HCPCS: 36415 ×2; 80053; 80305; 81003; 84132; 85025; 93005; 94760; 96361; 96374; 99285; G0480 ×3; G0481; J7030

== ENCOUNTER 2018-05-06 08:52 | Emergency (ER) | payer MEDICAID ==
[~2018-05-06 08:52] MED LIST changes: -AMLO10TA2 PO; +AMLO10TA7 PO; -LOSA100T29 PO; +LOSA100T58 PO
[2018-05-06 09:30] LABS: BASOPHILS % (AUTO) 1.2 % (0.0-5.0); EOSINOPHILS % (AUTO) 1.8 % (0.0-8.0); HEMATOCRIT 52.8 % (42-54); LYMPHOCYTES % (AUTO) 22.3 % (21.0-51.0); MEAN CORPUSCULAR HEMOGLOBIN 31.1 pg (27.0-33.0); MEAN CORPUSCULAR HGB CONC 34.5 g/dL (32.0-36.0); MEAN CORPUSCULAR VOLUME 90.1 fL (79-99); MONOCYTES % (AUTO) 9.1 % (3.0-13.0); NEUTROPHILS % (AUTO) 65.6 % (40.0-77.0); NUCLEATED RED BLOOD CELLS 0.2 % (0.0-0.19); PLATELET COUNT (AUTO) 296 K/uL (130-400); RED BLOOD CELL COUNT(AUTO) 5.86 MIL/uL (4.50-6.20); RED CELL DISTRIBUTION WIDTH 14.4 % (11.0-15.5); WHITE BLOOD COUNT (AUTO) 12.8 K/uL (4.8-10.8)
[2018-05-06 09:41] LABS: CREATININE 1.4 mg/dL (0.5-1.5); POTASSIUM 3.1 mmol/L (3.5-5.1)
[2018-05-06 09:44] LABS: INR 0.94 (0.85-1.15); PARTIAL THROMBOPLASTIN TIME 28.8 SEC (26.3-35.5); PROTHROMBIN TIME 9.9 SEC (9.6-11.6)
[2018-05-06 09:46] LABS: ALBUMIN 3.9 g/dL (3.5-5.0); BILIRUBIN,TOTAL 0.4 mg/dL (0.2-1.0); TOTAL PROTEIN, SERUM 8.2 g/dL (6.0-8.3)
[2018-05-06] MEDS ORDERED: POTASSIUM CHLORIDE 10% ELIXIR 20 MEQ/15 ML UDCUP ONE (10:21)
[2018-05-06 10:47] LABS: APPEARANCE,URINE Clear (CLEAR); BILIRUBIN,URINE Negative (NEGATIVE); COLOR,URINE Yellow (YELLOW); GLUCOSE, URINE (UA) >=1000 mg/dL (NEGATIVE); KETONES,URINE Negative (NEGATIVE); LEUKOCYTE ESTERASE ,URINE Negative (NEGATIVE); NITRATE,URINE Negative (NEGATIVE); OCCULT BLOOD,URINE Negative (NEGATIVE); PH,URINE 6.5 (5.0-8.0); PROTEIN,URINE Negative (NEGATIVE); UROBILINOGEN,URINE 0.2 mg/dL (0.2-1.0)
[2018-05-06 10:56] LABS: BACTERIA,URINE Rare /HPF (None Seen); MUCUS,URINE Rare LPF (None Seen); RBC,URINE 0-1 /HPF (0-1); SQUAMOUS EPITHELIAL CELL,UR Rare /HPF (0-2); WBC,URINE 0-1 /HPF (0-1)
[2018-05-06] MEDS ORDERED: KETOROLAC TROMETHAMINE 30MG/ML ONE (11:08)
[2018-05-06 11:38] LABS: AMPHET/METH SCREEN,URINE NEGATIVE (NEGATIVE); BARBITURATE SCREEN, URINE NEGATIVE (NEGATIVE); BENZODIAZEPINES SCREEN,URINE NEGATIVE (NEGATIVE); CANNABINOID SCREEN,URINE NEGATIVE (NEGATIVE); COCAINE SCREEN,URINE NEGATIVE (NEGATIVE); OPIATE SCREEN,URINE NEGATIVE (NEGATIVE); PHENCYCLIDINE SCREEN,URINE NEGATIVE (NEGATIVE)
== END 2018-05-06 11:48 | disposition home or self-care (01) ==
LOC: EDH 08:52
DX: R53.1 Weakness (principal); G89.29 Other chronic pain; M54.9 Dorsalgia, unspecified; R42 Dizziness and giddiness; R06.02 Shortness of breath; E11.9 Type 2 diabetes mellitus without complications; I10 Essential (primary) hypertension; F31.9 Bipolar disorder, unspecified; Z72.0 Tobacco use; Z79.899 Other long term (current) drug therapy
CPT/HCPCS: 36415; 70450; 71046; 80053; 80305; 81001; 82550; 83735; 84484; 85025; 85610; 85730; 93005; 96361; 96374; 99284; J1885

== ENCOUNTER 2018-07-04 20:25 | Observation (INO) | payer MEDICAID ==
[~2018-07-04] VITALS: Ht 175.3 cm; Wt 152.4 kg
[~2018-07-04 20:25] MED LIST changes: +PYRI50TA10 PO; -PYRI50TA9 PO
[2018-07-04] MEDS ORDERED: ASPIRIN 325 MG TABLET ONE (20:37)
[2018-07-04] MEDS ORDERED: ACETAMINOPHEN-CODEINE 300/30MG TAB ONE (20:38)
[2018-07-04 20:40] LABS: BASOPHILS % (AUTO) 1.1 % (0.0-5.0); EOSINOPHILS % (AUTO) 1.3 % (0.0-8.0); HEMATOCRIT 49.2 % (42-54); LYMPHOCYTES % (AUTO) 25.7 % (21.0-51.0); MEAN CORPUSCULAR HEMOGLOBIN 31.1 pg (27.0-33.0); MEAN CORPUSCULAR HGB CONC 34.9 g/dL (32.0-36.0); MEAN CORPUSCULAR VOLUME 89.2 fL (79-99); MONOCYTES % (AUTO) 7.3 % (3.0-13.0); NEUTROPHILS % (AUTO) 64.6 % (40.0-77.0); NUCLEATED RED BLOOD CELLS 0.1 % (0.0-0.19); PLATELET COUNT (AUTO) 333 K/uL (130-400); RED BLOOD CELL COUNT(AUTO) 5.52 MIL/uL (4.50-6.20); RED CELL DISTRIBUTION WIDTH 14.4 % (11.0-15.5); WHITE BLOOD COUNT (AUTO) 14.1 K/uL (4.8-10.8)
[2018-07-04 21:00] LABS: ALBUMIN 3.4 g/dL (3.5-5.0); BILIRUBIN,TOTAL 0.5 mg/dL (0.2-1.0); CREATININE 1.2 mg/dL (0.5-1.5); TOTAL PROTEIN, SERUM 7.3 g/dL (6.0-8.3)
[2018-07-04 21:01] LABS: POTASSIUM 2.2 mmol/L (3.5-5.1)
[2018-07-04] MEDS ORDERED: POTASSIUM CHLORIDE 10% ELIXIR 20 MEQ/15 ML UDCUP ONE (21:03)
[2018-07-04] MEDS ORDERED: POTASSIUM CHLORIDE 20MEQ/100ML 200 ML IV ONE (21:55)
[2018-07-04] MEDS: POTASSIUM CHLORIDE 20MEQ/100ML 100 ML IV SCH ×2 (22:00→23:00)
[2018-07-04] MEDS ORDERED: LIDOCAINE HCL-MPF 1% 2ML VIAL ONE (22:09)
[2018-07-04] MEDS ORDERED: NITROGLYCERIN 1GM/1 INCH PACKET TD ONE (22:56)
[2018-07-04] MEDS ORDERED: GLUCAGON 1MG KIT 1 MG ML IM PRN (23:45)
[2018-07-04] MEDS ORDERED: DEXTROSE 50%-WATER 50 ML DISP.SYRIN IV PRN (23:45)
[2018-07-04] MEDS ORDERED: POTASSIUM CHLORIDE 10% ELIXIR 20 MEQ/15 ML UDCUP PO PRN (23:45)
[2018-07-04] MEDS ORDERED: HYDROCODONE/ACETAMINOPHEN 10/325 MG TAB ONE (23:57)
[2018-07-05 01:07] VITALS: BP 112/88
[2018-07-05] MEDS ORDERED: POTASSIUM CHLORIDE 10% ELIXIR 20 MEQ/15 ML UDCUP PO PRN (02:00)
[2018-07-05] MEDS ORDERED: POTASSIUM CHLORIDE 20 MEQ ERTAB PO PRN (02:00)
[2018-07-05] MEDS ORDERED: LIDOCAINE HCL-MPF 1% 2ML VIAL IVP PRN (02:00)
[2018-07-05] MEDS ORDERED: POTASSIUM CHLORIDE 20MEQ/100ML 100 ML IV PRN (02:00)
[2018-07-05] MEDS ORDERED: MORPHINE SULFATE 4 MG/1ML SYG ONE (02:53)
[2018-07-05] MEDS: POTASSIUM CHLORIDE 20 MEQ ERTAB PO PRN ×5 (03:19→22:52)
[2018-07-05] MEDS: POTASSIUM CHLORIDE 20MEQ/100ML 100 ML IV PRN ×3 (03:20→15:50)
[2018-07-05] MEDS: LIDOCAINE HCL-MPF 1% 2ML VIAL IJ PRN ×2 (03:20→15:51)
[2018-07-05 03:21] LABS: CREATINE KINASE, TOTAL 266 U/L (21-232); MYOGLOBIN 162 ng/mL (10-92); POTASSIUM 2.4 mmol/L (3.5-5.1); TROPONIN I < 0.04 ng/mL (0.00-0.06)
[2018-07-05 03:48] VITALS: BP 116/63
[2018-07-05] MEDS: NITROGLYCERIN 1GM/1 INCH PACKET TD SCH ×5 (05:52→23:24)
[2018-07-05] MEDS: INSULIN R PO SS1 SQ SCH ×4 (06:08→21:00)
[2018-07-05] MEDS: MORPHINE SULFATE 4 MG/1ML SYG IV PRN ×4 (06:36→20:47)
[2018-07-05 07:30] VITALS: BP 115/56
--- NOTE | 2018-07-05 08:00 | NUR ---
Patient awake, alert, oriented x3. very minimal bruising to the small incision on right groin, area soft on palpation. Pedal pulses strong. Addendum: 07/05/18 at 1129 by CYRUS OLIVARES RN ENTERED IN ERROR
--- NOTE | 2018-07-05 08:00 | NUR ---
Patient oriented x 3, denies chest pain at this time. State that the pain medication helped his hip pain a little and reporting the same pain scale however he is still very sleepy during the physical assessment. No redness or swelling to right hip,. Old scars to abdomen. Dressing clean and intact to the skin tear on the tip of left great toe.
[2018-07-05] MEDS: ASPIRIN 325MG EC TAB 325 MG TABLET.DR PO SCH (08:05)
[2018-07-05 10:09] LABS: CREATINE KINASE, TOTAL 290 U/L (21-232); MYOGLOBIN 128 ng/mL (10-92); TROPONIN I < 0.04 ng/mL (0.00-0.06)
[2018-07-05] MEDS ORDERED: SODIUM CHLORIDE 0.9% 250 ML IV ONE (10:27)
[2018-07-05 11:00] VITALS: BP 113/60
--- NOTE | 2018-07-05 11:13 | NUR ---
[facility] CONSULT PATIENT ASSESSED ORDERED: PATIENT PRESENTS WITH TRAUMA WOUND TO LT GREAT TOE; [facility] RECOMMENDATIONS SUBMITTED. Addendum: 07/05/18 at 1114 by PEDRO DAVIS LVN LVN W Amended: Links added.
--- NOTE | 2018-07-05 13:00 | NUR ---
DR. BETY SMITH, PT COMPLAINING OF SOME CHEST PAIN PT STATES IS NOT A LOT, BUT "A LITTLE BIT OF CHEST PAIN" PT PLACED ON 02 AT 2 LITERS SATING 92-93% NITRO PASTE PATCH APPLIED TO CHEST AREA WILL CONTINUE TO MONITOR
--- NOTE | 2018-07-05 14:22 | NUR ---
Nutrition Intervention: Nutrition consult due to poor appetite. Pt. admitted with Dx of Chest pain, R/O ACS. Pt. on 75gm CCD diet with poor p.o. intake for b'fast due to didn't like the food, as per pt. Pt. voiced food preferences. Labs reviewed(Alb 3.4, BG 103). LBM: 07/04/18. SR-20, left great hallux skin tear. BMI: 49.6, Obesity Grade 3. Pt. educated on Diabetic diet and provided with education material. Pt. verbalized understanding. Recommendations: 1) Continue current diet. 2) Diabetic diet education given to patient. 3) Continue to monitor pt's nutritional status. 4) Consult RD as nutrition concerns arise. Addendum: 07/05/18 at [address] Amended: Links added.
--- NOTE | 2018-07-05 14:45 | NUR ---
DR. ALBERT PAGED BACK AWARE OF PT STATUS AND LABS AND TELEMETRY MONITORING NO NEW ORDERS STATED WILL COME TO SEE PATIENT IN A BIT
--- NOTE | 2018-07-05 15:31 | NUR ---
DR. CARTER SMITH FOR CONSULT ON PATIENT
[2018-07-05 16:00] VITALS: BP 120/61
--- NOTE | 2018-07-05 17:00 | NUR ---
Pt was educated and reminded of fluid restriction
[2018-07-05] MEDS ORDERED: MAGNESIUM 2GM PREMIX 50ML 50 ML IV PRN (19:15)
[2018-07-05] MEDS ORDERED: TEMAZEPAM 30 MG CAP PO PRN (19:15)
[2018-07-05] MEDS ORDERED: IOHEXOL-350 75 ML VIAL IV ONE (19:41)
[2018-07-05 20:00] VITALS: BP 128/56
[2018-07-05 20:14] LABS: INR 0.98 (0.85-1.15); PARTIAL THROMBOPLASTIN TIME 29.6 SEC (26.3-35.5); PROTHROMBIN TIME 10.3 SEC (9.6-11.6)
[2018-07-05] MEDS: POTASSIUM CHLORIDE 10% ELIXIR 20 MEQ/15 ML UDCUP PO SCH (20:49)
[2018-07-05] MEDS: LISINOPRIL 20 MG TABLET PO SCH (20:50)
[2018-07-05] MEDS ORDERED: FLUOXETINE HCL PO SCH (21:00)
[2018-07-05] MEDS ORDERED: OLANZAPINE PO SCH (21:00)
[2018-07-05] MEDS ORDERED: QUETIAPINE FUMARATE 800 MG PO SCH (21:00)
--- NOTE | 2018-07-05 21:15 | NUR ---
md consult dr. galicia to see and examen patient with orders
--- NOTE | 2018-07-05 22:00 | NUR ---
ct for PE spoke to radiology regarding ct with pe protocal, patint not npo, not able to perform procedure at this time, keep patient npo and will perform ct for pe protocal tomorrow early am
[2018-07-06] VITALS: BP 107/74
[2018-07-06] MEDS: MORPHINE SULFATE 4 MG/1ML SYG IV PRN ×3 (01:12→15:07)
[2018-07-06] MEDS: POTASSIUM CHLORIDE 20 MEQ ERTAB PO PRN ×2 (01:29→15:17)
[2018-07-06 03:19] LABS: ABG BASE EXCESS 4.2 mmol/L (-2.0-3.0); ABG HCO3 28.1 mmol/L (21.0-28.0); ABG OXYGEN SATURATION 94.8 % (95.0-99.0); ABG PCO2 40 mmHg (35-48)
[2018-07-06 04:00] VITALS: BP 133/76
[2018-07-06 05:35] LABS: HEMATOCRIT 47.3 % (42-54); MEAN CORPUSCULAR HEMOGLOBIN 31.4 pg (27.0-33.0); MEAN CORPUSCULAR HGB CONC 34.9 g/dL (32.0-36.0); MEAN CORPUSCULAR VOLUME 89.8 fL (79-99); NUCLEATED RED BLOOD CELLS 0.1 % (0.0-0.19); PLATELET COUNT (AUTO) 308 K/uL (130-400); RED BLOOD CELL COUNT(AUTO) 5.27 MIL/uL (4.50-6.20); WHITE BLOOD COUNT (AUTO) 11.6 K/uL (4.8-10.8)
[2018-07-06] MEDS: NITROGLYCERIN 1GM/1 INCH PACKET TD SCH ×2 (05:46→12:00)
[2018-07-06 06:01] LABS: ALBUMIN 3.4 g/dL (3.5-5.0); BILIRUBIN,TOTAL 0.6 mg/dL (0.2-1.0); MAGNESIUM 2.2 mg/dL (1.80-2.40); PHOSPHORUS 2.1 mg/dL (2.5-4.9); THYROID STIMULATING HORMONE 1.42 uIU/mL (0.36-3.74)
[2018-07-06] MEDS: INSULIN R PO SS1 SQ SCH ×3 (06:27→16:30)
[2018-07-06] MEDS: POTASSIUM CHLORIDE 20MEQ/100ML 100 ML IV PRN (06:43)
[2018-07-06] MEDS: LIDOCAINE HCL-MPF 1% 2ML VIAL IJ PRN (06:43)
[2018-07-06] MEDS ORDERED: LEVOTHYROXINE 100 MCG TABLET PO SCH (07:30)
[2018-07-06 08:00] VITALS: BP 121/52
[2018-07-06] MEDS ORDERED: PYRIDOXINE HCL 50 MG TABLET PO SCH (09:00)
[2018-07-06] MEDS ORDERED: CYANOCOBALAMIN (VITAMIN B-12) 1,000 MCG TABLET PO SCH (09:00)
[2018-07-06] MEDS ORDERED: BIOTIN PO SCH (09:00)
[2018-07-06] MEDS ORDERED: VIT B CMPLX PO SCH (09:00)
[2018-07-06] MEDS ORDERED: MONTELUKAST SODIUM 10 MG TAB PO SCH (09:00)
[2018-07-06] MEDS ORDERED: [UNRECOGNIZED DRUG - OTHER] PO SCH (09:00)
[2018-07-06] MEDS ORDERED: ENOXAPARIN SODIUM 40 MG/0.4 ML SYRINGE SQ SCH (09:00)
[2018-07-06] MEDS ORDERED: OXCARBAZEPINE 300 MG TAB PO SCH (09:00)
[2018-07-06] MEDS ORDERED: FERROUS SULFATE 325 MG TABLET.DR PO SCH (09:00)
[2018-07-06] MEDS ORDERED: PANTOPRAZOLE SODIUM 40 MG TABLET.DR PO SCH (09:00)
[2018-07-06] MEDS ORDERED: AMLODIPINE BESYLATE 5 MG TAB PO SCH (09:00)
[2018-07-06] MEDS ORDERED: CETIRIZINE HCL 5 MG TABLET PO SCH (09:00)
[2018-07-06] MEDS ORDERED: LOSARTAN 100 MG TABLET PO SCH (09:00)
[2018-07-06] MEDS ORDERED: IOHEXOL 350 MG/ML 100ML INFUS..BTL IV ONE (10:30)
[2018-07-06 11:59] VITALS: BP 113/63
[2018-07-06] MEDS ORDERED: REGADENOSON 0.4 MG/5 ML PF SYG IVP SCH (12:30)
[2018-07-06] MEDS: POTASSIUM CHLORIDE 10% ELIXIR 20 MEQ/15 ML UDCUP PO SCH ×2 (14:00→15:19)
[2018-07-06] MEDS: ASPIRIN 325MG EC TAB 325 MG TABLET.DR PO SCH (15:16)
[2018-07-06] MEDS: LISINOPRIL 20 MG TABLET PO SCH (15:17)
[2018-07-06 15:39] VITALS: BP 130/73
--- NOTE | 2018-07-06 16:23 | NUR ---
cm note met with patient and [facility] resides athome alone, uses walk[facility] and [facility] at times. [facility] has provider approx 4-5hrs daily. [facility] is back to home. provider torito grande (paul) called and states she will pick him up at co. if co'd today. cell [phone]. Addendum: 07/06/18 at 1627 by PILO JACKSON CM Amended: Links added.
--- NOTE | 2018-07-06 19:45 | NUR ---
DISCHARGE PATIENT GIVEN DISCHARGE INSTRUCTIONS AND EDUCATION, NO NEW MEDICATIONS, PATIENT AWARE OF NEED ING TO MAKE FOLLOW UP APPOINTMENT WITH DR.J NORIEGA. PATIENT VERBALIZED UNDERSTANDING OF ALL EDUCATION GIVEN VIA TEACH BACK. NO QUESTIONS OR CONCERNS VOICED AT THIS TIME. IV DISCONTINUED, CATHETER INTACT. MEDIA MARKETING SPECIALIST DISCONTINUED, MONITOR AWARE. NO SIGNS OF DISTRESS NOTED UPON DISCHARGE. PATIENT LEFT VIA WHEELCHAIR TO PRIVATE CAR. ALL BELONGINGS TAKEN WITH. Addendum: 07/06/18 at 1950 by MAYRA BRIONES RN RN Amended: Links added.
== END 2018-07-06 19:45 | disposition home or self-care (01) ==
LOC: EDH 20:25 → EDHIP 20:26 → 4BH 07-05 00:49
PROVIDERS: ADMIT Internal Medicine; ATTEND Internal Medicine
DX: R07.89 Other chest pain (principal); E03.9 Hypothyroidism, unspecified; E87.6 Hypokalemia; I10 Essential (primary) hypertension; E78.5 Hyperlipidemia, unspecified; E11.9 Type 2 diabetes mellitus without complications; M19.90 Unspecified osteoarthritis, unspecified site; F45.8 Other somatoform disorders; F31.9 Bipolar disorder, unspecified; G89.29 Other chronic pain; M54.9 Dorsalgia, unspecified; F17.210 Nicotine dependence, cigarettes, uncomplicated; Z79.899 Other long term (current) drug therapy; Z82.49 Family history of ischemic heart disease and other diseases of the circulatory system; Z96.649 Presence of unspecified artificial hip joint
CPT/HCPCS: 36415 ×3; 36600; 71045; 71275; 73502; 78452; 80053 ×2; 82550 ×2; 82803; 82948 ×6; 83605; 83690; 83735; 83874 ×2; 83880; 84100; 84132 ×2; 84443; 84484 ×3; 85025; 85027; 85610; 85730; 93005 ×3; 93017; 93970; 96365; 96366 ×2; 96372; 96375; 96376 ×2; 99284; A9500 ×2; G0378 ×37; J1650; J2270 ×9; J2785; J3480 ×5; J3490 ×4; J7030; Q9967; 96374

== ENCOUNTER 2018-09-04 18:43 | Emergency (ER) | payer MEDICAID ==
[~2018-09-04 18:43] MED LIST changes: -DOCU240C88 PO; -ICOS1CAP PO; -LIRA0.6P SQ; -PYRI50TA10 PO; +PYRI50TA13 PO; -QUET400T12 PO
[2018-09-04] MEDS ORDERED: SODIUM CHLORIDE 0.9% 500ML 500 ML IV ONE (19:56)
[2018-09-04 20:31] LABS: BASOPHILS % (AUTO) 1.3 % (0.0-5.0); EOSINOPHILS % (AUTO) 2.8 % (0.0-8.0); HEMATOCRIT 48.5 % (42-54); LYMPHOCYTES % (AUTO) 26.8 % (21.0-51.0); MEAN CORPUSCULAR HEMOGLOBIN 31.3 pg (27.0-33.0); MEAN CORPUSCULAR VOLUME 92.1 fL (79-99); MONOCYTES % (AUTO) 6.2 % (3.0-13.0); NEUTROPHILS % (AUTO) 62.9 % (40.0-77.0); NUCLEATED RED BLOOD CELLS 0.1 % (0.0-0.19); PLATELET COUNT (AUTO) 315 K/uL (130-400); RED BLOOD CELL COUNT(AUTO) 5.26 MIL/uL (4.50-6.20); RED CELL DISTRIBUTION WIDTH 15.1 % (11.0-15.5); WHITE BLOOD COUNT (AUTO) 11.7 K/uL (4.8-10.8)
[2018-09-04 20:34] LABS: APPEARANCE,URINE Clear (CLEAR); BILIRUBIN,URINE Negative (NEGATIVE); COLOR,URINE Yellow (YELLOW); GLUCOSE, URINE (UA) Negative (NEGATIVE); KETONES,URINE Negative (NEGATIVE); LEUKOCYTE ESTERASE ,URINE Negative (NEGATIVE); NITRATE,URINE Negative (NEGATIVE); OCCULT BLOOD,URINE Negative (NEGATIVE); PROTEIN,URINE Negative (NEGATIVE); UROBILINOGEN,URINE 0.2 mg/dL (0.2-1.0)
[2018-09-04 20:44] LABS: INR 0.91 (0.85-1.15); PARTIAL THROMBOPLASTIN TIME 29.2 SEC (26.3-35.5); PROTHROMBIN TIME 9.6 SEC (9.6-11.6)
[2018-09-04 21:06] LABS: ALBUMIN 3.2 g/dL (3.5-5.0); BILIRUBIN,TOTAL 0.4 mg/dL (0.2-1.0); TOTAL PROTEIN, SERUM 7.1 g/dL (6.0-8.3)
[2018-09-04 21:18] LABS: POTASSIUM 4.4 mmol/L (3.5-5.1)
[2018-09-04 21:20] LABS: B-TYPE NATRIURETIC PEPTIDE 20 pg/mL (0-100)
[2018-09-04] MEDS ORDERED: SODIUM CHLORIDE 0.9% 1000ML 1,000 ML IV ONE (21:27)
[2018-09-04] MEDS ORDERED: KETOROLAC TROMETHAMINE 60 MG/2 ML VIAL ONE (21:27)
== END 2018-09-04 22:28 | disposition home or self-care (01) ==
LOC: EDH 18:43
DX: E86.9 Volume depletion, unspecified (principal); R19.7 Diarrhea, unspecified; R53.81 Other malaise; R53.83 Other fatigue; I10 Essential (primary) hypertension; E11.9 Type 2 diabetes mellitus without complications; F31.9 Bipolar disorder, unspecified; G89.29 Other chronic pain; Z79.4 Long term (current) use of insulin; Z90.49 Acquired absence of other specified parts of digestive tract; Z87.891 Personal history of nicotine dependence; Z98.890 Other specified postprocedural states
CPT/HCPCS: 36415; 71045; 80053; 81003; 82550; 83605; 83690; 83880; 84484; 85025; 85610; 85730; 93005; 96361; 96374; 99285; J1885; J7030; J7040

== ENCOUNTER 2019-04-08 18:45 | Emergency (ER) | payer MEDICAID ==
[~2019-04-08 18:45] MED LIST changes: -MONT10TA24 PO; +MONT10TA26 PO
[2019-04-08] MEDS ORDERED: KETOROLAC TROMETHAMINE 30MG/ML ONE (21:19)
== END 2019-04-08 21:32 | disposition home or self-care (01) ==
LOC: EDH 18:45
DX: M25.551 Pain in right hip (principal); M25.561 Pain in right knee; E11.9 Type 2 diabetes mellitus without complications; I10 Essential (primary) hypertension; F31.9 Bipolar disorder, unspecified; Z72.0 Tobacco use; Z98.890 Other specified postprocedural states; W18.39XA Other fall on same level, initial encounter; Y93.01 Activity, walking, marching and hiking; Y92.89 Other specified places as the place of occurrence of the external cause; Y99.8 Other external cause status
CPT/HCPCS: 70450; 73502; 73552; 73562; 96372; 99284; J1885

== ENCOUNTER 2019-05-19 14:30 | Emergency (ER) | payer MEDICAID ==
[~2019-05-19 14:30] MED LIST changes: +AMLO-258 PO; -AMLO10TA7 PO
[2019-05-19] MEDS ORDERED: MORPHINE SULFATE 4 MG/1ML SYG ONE (15:17)
[2019-05-19] MEDS ORDERED: ONDANSETRON HCL 4 MG/2 ML VIAL ONE (15:17)
[2019-05-19 15:42] LABS: BASOPHILS % (AUTO) 1.3 % (0.0-5.0); EOSINOPHILS % (AUTO) 2.4 % (0.0-8.0); HEMATOCRIT 50.3 % (42-54); LYMPHOCYTES % (AUTO) 27.9 % (21.0-51.0); MEAN CORPUSCULAR HEMOGLOBIN 26.3 pg (27.0-33.0); MEAN CORPUSCULAR HGB CONC 33.4 g/dL (32.0-36.0); MEAN CORPUSCULAR VOLUME 78.6 fL (79-99); MONOCYTES % (AUTO) 7.3 % (3.0-13.0); NEUTROPHILS % (AUTO) 60.8 % (40.0-77.0); PLATELET COUNT (AUTO) 309 K/uL (130-400); RED CELL DISTRIBUTION WIDTH 12.4 % (11.0-15.5); WHITE BLOOD COUNT (AUTO) 11.4 K/uL (4.8-10.8)
[2019-05-19 15:54] LABS: CREATININE 1.4 mg/dL (0.5-1.5); POTASSIUM 3.4 mmol/L (3.5-5.1)
[2019-05-19 15:59] LABS: ALBUMIN 3.9 g/dL (3.5-5.0); BILIRUBIN,TOTAL 0.4 mg/dL (0.2-1.0); TOTAL PROTEIN, SERUM 7.9 g/dL (6.0-8.3)
[2019-05-19 16:51] LABS: APPEARANCE,URINE Clear (CLEAR); BILIRUBIN,URINE Negative (NEGATIVE); COLOR,URINE Yellow (YELLOW); GLUCOSE, URINE (UA) 500 mg/dL (NEGATIVE); KETONES,URINE Negative (NEGATIVE); LEUKOCYTE ESTERASE ,URINE Trace (NEGATIVE); NITRATE,URINE Negative (NEGATIVE); OCCULT BLOOD,URINE Negative (NEGATIVE); PH,URINE 5.5 (5.0-8.0); PROTEIN,URINE Negative (NEGATIVE); UROBILINOGEN,URINE 0.2 mg/dL (0.2-1.0)
[2019-05-19] MEDS ORDERED: TRAMADOL HCL 50 MG TABLET ONE (17:42)
[2019-05-19 17:43] LABS: BACTERIA,URINE Rare /HPF (None Seen); RBC,URINE 0-1 /HPF (0-1); SQUAMOUS EPITHELIAL CELL,UR Rare /HPF (0-2)
[2019-05-19 18:06] LABS: PARTIAL THROMBOPLASTIN TIME 28.6 SEC (26.3-35.5); PROTHROMBIN TIME 10.8 SEC (9.6-11.6)
== END 2019-05-19 18:15 | disposition home or self-care (01) ==
LOC: EDH 14:30
DX: S79.911A Unspecified injury of right hip, initial encounter (principal); G89.29 Other chronic pain; E11.9 Type 2 diabetes mellitus without complications; F32.9 Major depressive disorder, single episode, unspecified; I10 Essential (primary) hypertension; Z72.0 Tobacco use; Z90.49 Acquired absence of other specified parts of digestive tract; W18.39XA Other fall on same level, initial encounter; Y93.01 Activity, walking, marching and hiking; Y92.89 Other specified places as the place of occurrence of the external cause; Y99.8 Other external cause status
CPT/HCPCS: 36415; 71045; 73502; 73552; 73562; 80053; 81001; 82550; 84484; 85025; 85610; 85730; 86850; 86900; 86901; 93005; 96374; 96375; 99285; J2270; J2405

== ENCOUNTER → 2020-10-08 | Outpatient (CLI) | payer MEDICAID ==
[~2020-10-08] MED LIST changes: -LISI-613 PO; +LISI20TA24 PO; -MONT10TA26 PO; +MONT10TA32 PO; +PYRI-12 PO; -PYRI50TA13 PO
== END | disposition home or self-care (01) ==
LOC: RAH 12:33
PROVIDERS: ATTEND Physical Medicine & Rehabilitation
DX: M25.551 Pain in right hip (principal); Z96.641 Presence of right artificial hip joint
CPT/HCPCS: 78315; A9503

== ENCOUNTER 2023-07-17 12:46 | Emergency (ER) | payer OTHER, MEDICAID ==
[~2023-07-17] VITALS: Ht 175.3 cm; Wt 127.0 kg
[~2023-07-17 12:46] MED LIST changes: -LOSA100T58 PO; +LOSA100T59 PO; +MONT-39 PO; -MONT10TA32 PO
[2023-07-17] MEDS: ONDANSETRON 4MG INJ IVP ONE (13:17)
[2023-07-17] MEDS: MORPHINE 4 MG SYG IVP ONE (13:17)
[2023-07-17 13:37] LABS: BASOPHILS # (AUTO) 0.11 K/uL (0.00-0.20); EOSINOPHILS # (AUTO) 0.61 K/uL (0.00-0.70); EOSINOPHILS % (AUTO) 5.7 % (0.0-8.0); HEMATOCRIT 42.6 % (42-54); IMMATURE GRANULOCYTE ABSOLUTE 0.11 K/uL (0-1); LYMPHOCYTES # (AUTO) 2.3 K/uL (1.0-4.8); LYMPHOCYTES % (AUTO) 21.6 % (21.0-51.0); MEAN CORPUSCULAR HEMOGLOBIN 29.9 pg (27.0-33.0); MEAN CORPUSCULAR HGB CONC 34.3 g/dL (32.0-36.0); MEAN CORPUSCULAR VOLUME 87.3 fL (79-99); MONOCYTES # (AUTO) 1.2 K/uL (0.1-1.0); MONOCYTES % (AUTO) 10.8 % (3.0-13.0); NEUTROPHILS # (AUTO) 6.3 K/uL (1.8-7.7); NEUTROPHILS % (AUTO) 59.9 % (40.0-77.0); PLATELET COUNT (AUTO) 275 K/uL (130-400); RED BLOOD CELL COUNT(AUTO) 4.88 MIL/uL (4.50-6.20); RED CELL DISTRIBUTION WIDTH 13.3 % (11.0-15.5); WHITE BLOOD COUNT (AUTO) 10.6 K/uL (4.8-10.8)
[2023-07-17 13:49] LABS: APPEARANCE,URINE CLEAR (CLEAR); BILIRUBIN,URINE NEGATIVE (NEGATIVE); COLOR,URINE COLORLESS (YELLOW); GLUCOSE, URINE (UA) NEGATIVE (NEGATIVE); KETONES,URINE NEGATIVE (NEGATIVE); LEUKOCYTE ESTERASE ,URINE NEGATIVE Leu/uL (NEGATIVE); NITRATE,URINE NEGATIVE (NEGATIVE); OCCULT BLOOD,URINE NEGATIVE (NEGATIVE); PH,URINE 7.5 (5.0-8.0); PROTEIN,URINE NEGATIVE (NEGATIVE); UROBILINOGEN,URINE 0.2 mg/dL (0.2-1.0)
[2023-07-17 13:50] LABS: CREATININE 1.1 mg/dL (0.5-1.3); POTASSIUM 3.6 mmol/L (3.5-5.1)
[2023-07-17 13:52] LABS: ADD UA MICROSCOPIC NO
[2023-07-17 13:55] LABS: ALBUMIN 3.1 g/dL (3.5-5.0); BILIRUBIN,TOTAL 0.3 mg/dL (0.2-1.0); MAGNESIUM 1.9 mg/dL (1.80-2.40); TOTAL PROTEIN, SERUM 6.5 g/dL (6.0-8.3)
[2023-07-17 13:58] LABS: INR <= 0.93 (0.85-1.15); PROTHROMBIN TIME 10.3 SEC (9.6-11.6)
[2023-07-17 13:59] LABS: PARTIAL THROMBOPLASTIN TIME 26.6 SEC (26.3-35.5)
[2023-07-17] MEDS ORDERED: IBUP-2077 PO (14:34)
[2023-07-17 14:42] VITALS: BP 148/70; PULSE 71; RESP 18; O2SAT 98
== END 2023-07-17 15:08 | disposition home or self-care (01) ==
LOC: EDH 12:46
DX: S70.01XA Contusion of right hip, initial encounter (principal); I10 Essential (primary) hypertension; E11.9 Type 2 diabetes mellitus without complications; E78.00 Pure hypercholesterolemia, unspecified; E86.0 Dehydration; Z79.899 Other long term (current) drug therapy; Z90.49 Acquired absence of other specified parts of digestive tract; Z98.890 Other specified postprocedural states; W01.0XXA Fall on same level from slipping, tripping and stumbling without subsequent striking against object, initial encounter; Y93.89 Activity, other specified; Y92.89 Other specified places as the place of occurrence of the external cause; Y99.8 Other external cause status
CPT/HCPCS: 99285; 96374; 96375; 83735; 84484; 80053; 85025; 85610; 85730; 81003; 36415; 73502; 93005; J2405; J2270; 29125

== ENCOUNTER → 2024-10-03 | Outpatient (CLI) | payer MEDICAID ==
[~2024-10-03] MED LIST changes: -AMLO-258 PO; +BUPR-93 PO; -CETI10TA57 PO; -CYAN250014 PO; +ERGO500093 PO; -ESOM40CA PO; -FERS325 PO; +FOLI1 PO; +GABA-1405 PO; +HYDR100C2 PO; -LEVO100T12 PO; +LEVO50CA5 PO; -LISI20TA24 PO; -LOSA100T59 PO; +METH4TAB3 PO; -MONT-39 PO; -OLAN1CAP17 PO; -OXCA600T37 PO; -PYRI-12 PO; +QUET400T13 PO; -TEMA30CA PO; +TRAZ300T2 PO; -VIT1TABL75 PO
[2024-10-03] MEDS: REGADENOSON 0.4 MG/5 ML PF SYG IVP ONE (09:22)
--- NOTE | 2024-10-03 14:18 | HMCSR ---
APPROVED REPORT Height: 5 ft 9in Weight: 280 lbs TEST INDICATIONS Hypertension/HDD The imaging protocol used to acquire images was Rest Tc-99m/stress Tc-99m 1 day Consent: The procedure was explained and understood by the patient. Informerd consent was witnessed Rajiv Singh RN First, low dose rest was performed then high dose stress. RESTING DATA: The resting ekg shows: NSR Rest SPECT myocardial perfusion imaging was performed in supine position minutes following the intra venous injection of 11 mCi of Tc-99 Sestamibi. Time of rest injection: 09:20: Date: 10/03/2024 PHARMACOLOGIC STRESS: Pharmacologic stress test was performed by injecting regadenoson 0.4 mg IV push followed by the intra venous injection of 30 mCi of Tc-99 Sestamibi. Time of stress injection: 10:55: Date: 10/03/2024 Heart Rate at time of stress injection: 63 bpm. Gated Stress SPECT was performed 60 minutes after stress injection. The images were gated to evaluate regional wall motion and calculate left ventricular ejection fracti on. STRESS DETAILS Reason for Termination: Infusion complete Stress Symptoms: No chest pain or symptoms Max HR Achieved: 78 bpm % of APMHR Achieved: 54 Max Blood Pressure: 109/57 mmHg Stress ECG: NSR Study quality was good. Lung uptake was Normal. Artifact: increased GI uptake LEFT VENTRICLE Size: The left ventricular size is normal. Systolic Function:The left ventricular systolic function is normal. Wall Motion: No regional wall motion abnormalities noted. The left ventricular ejection fraction was calculated to be 791.0%.TID = . LV PERFUSION There is decreased radiotracer uptake noted in the inferior segments more prominent on the stress naomie ges compared to the rest images consistent with a reversible ischemic defect. IMPRESSION Mildly abnormal exercise pharmacologic nuclear stress test. Global LV Function: Normal Stress ECG Summary: Normal LV Perfusion Summary: Abnormal Conclusion Mildly abnormal exercise pharmacologic nuclear stress test for a moderate sized area of mild inferio r wall ischemia Global LV Function: Normal Stress ECG Summary: Normal LV Perfusion Summary: Abnormal for mild inferior wall ischemia moderate size Low risk scan GI artifact noted
== END | disposition home or self-care (01) ==
LOC: RAH 08:55
PROVIDERS: ATTEND Internal Medicine Cardiovascular Disease
DX: I25.9 Chronic ischemic heart disease, unspecified (principal); I10 Essential (primary) hypertension
CPT/HCPCS: 78452; 93017; J2785; A9500 ×2